=== PATIENT | male | born 1975 | race Caucasian/White ===

== ENCOUNTER 2019-04-26 11:55 | Day surgery (SDC) | payer OTHER ==
[~2019-04-26] VITALS: Ht 182.9 cm; Wt 96.6 kg
[~2019-04-26 11:55] MED LIST: BACTRIM DS TAB1 EACH PO; MELOXICAM15 MG PO; NORCO 5-325 TA1 EACH PO
[2019-04-26] MEDS ORDERED: IBUPROFEN200 MG PO (12:20)
--- NOTE | 2019-04-26 14:38 | NUR ---
04/26/19 1438 Leonela Hamilton 1433-PATIENT ARRIVED TO PACU ON 2L NC REACTIVE TO VERBAL STIMULI OPENING EYES. LAYING LEFT LATERAL. ABDOMEN SOFT ENCOURAGED TO PASS GAS. PATIENT REPORTS "LITTLE CRAMPING" CLOSES EYES. RR EVEN.
--- NOTE | 2019-04-26 17:32 | OR ---
[facility] [address], [place] [address] Signed DATE OF OPERATION: 04/26/2019 SURGEON: Kali Byrd MD PREOPERATIVE DIAGNOSIS: History of left lower abdominal pain, largely resolved. No family history of colon cancer. POSTOPERATIVE DIAGNOSIS: Polyps x4. PROCEDURE PERFORMED: Total colonoscopy to cecum with cold snare polypectomy x2 and cold morcellation polypectomy x2. ANESTHESIA: Intravenous sedation, fentanyl 150 mcg, Versed 9 mg. INDICATION: This 44-year-old white man is a patient of [facility] Maynard. He had an episode a number of weeks ago of persistent left lower abdominal pain, but no associated rectal bleeding. These symptoms resolved entirely. He has no family history of colon cancer. He complains of constipation, which he attributes to aspirin. He is admitted to undergo colonoscopy on the basis of his symptoms. He understands the risks of bleeding, infection, perforation, and findings. The prep was excellent. Complete colonoscopy was undertaken in the cecum without question. There were 4 small polyps in total, all excised with cold morcellation technique. Narrow band imaging confirmed at least three to likely be adenomatous. DESCRIPTION OF PROCEDURE: The patient was brought to the endoscopy suite, placed in lateral decubitus position, and given intravenous sedation to the point of slurred speech and nystagmus. Digital rectal examination was normal. An Olympus video colonoscope was passed in the rectum and manipulated throughout the colon ultimately intubating the cecum itself. The ileocecal valve and appendiceal orifice were normal. The scope was withdrawn, and in the region of the distal ascending colon was a small polyp with narrow band imaging that appeared to be adenomatous in appearance. This was excised with cold snare polypectomy technique and extracted with morcellation device. Further withdrawal of scope showed no other abnormality into the Electronically Signed By: KALI BYRD MD 04/26/19 1732 PATIENT NAME: CRISTIANE FLORES OPERATIVE REPORT DATE OF : 71 REPORT #: [id number] PHYSICIAN: KALI BYRD MD PCP: OLINDA COYNE PA-C REPORT IS CONFIDENTIAL AND NOT TO BE RELEASED WITHOUT AUTHORIZATION [facility] [address], [place] [address] Signed sigmoid where there were 2 small polyps, one of them certainly adenomatous in appearance based on narrow band imaging. Both were excised, one with cold snare technique. The other cold morcellation technique. Retroflexed view was then undertaken in the rectum showing a small polyp in the low rectum, which was excised with cold morcellation technique. The scope was withdrawn. The patient was taken to recovery room in good condition. CONCLUDING DIAGNOSIS: Polyps x4. PLAN: Recommend repeat colonoscopy in 5 years unless there is an adverse finding on the pathology report. MD MARJORIE Blackburn/MODL /[id number] cc: Olinda Coyne PA-C Copies: OLINDA COYNE PA-C ~ Electronically Signed By: KALI BYRD MD 04/26/19 1732 PATIENT NAME: CRISTIANE FLORES OPERATIVE REPORT DATE OF : 71 REPORT #: [id number] PHYSICIAN: KALI BYRD MD PCP: OLINDA COYNE PA-C REPORT IS CONFIDENTIAL AND NOT TO BE RELEASED WITHOUT AUTHORIZATION
== END 2019-04-26 15:35 | disposition home or self-care (01) ==
LOC: OPS 11:55 → DS 13:00 → OPS 15:35
PROVIDERS: Surgery
PROC: 0DBE8ZZ Excision of Large Intestine, Via Natural or Artificial Opening Endoscopic (ICD-10-PCS; 2019-04-26)
PROC: 0DBP8ZZ Excision of Rectum, Via Natural or Artificial Opening Endoscopic (ICD-10-PCS; 2019-04-26)
PROC: 0DBL8ZZ Excision of Transverse Colon, Via Natural or Artificial Opening Endoscopic (ICD-10-PCS; principal; 2019-04-26 13:00)
DX: D12.6 Benign neoplasm of colon, unspecified (principal); K63.5 Polyp of colon; K62.1 Rectal polyp; K59.00 Constipation, unspecified; E03.9 Hypothyroidism, unspecified; J45.909 Unspecified asthma, uncomplicated; Z79.899 Other long term (current) drug therapy
CPT/HCPCS: 99153; G0500; J2250; J3010; J7121